=== PATIENT | female | born 1965 | race Two or more races ===

== ENCOUNTER 2020-03-25 17:28 | Emergency (ER) | payer OTHER ==
[~2020-03-25] VITALS: Ht 162.6 cm; Wt 53.5 kg
== END 2020-03-25 20:05 | disposition home or self-care (01) ==
LOC: ER 17:28
DX: R07.89 Other chest pain (principal); F06.4 Anxiety disorder due to known physiological condition

== ENCOUNTER 2020-03-26 18:24 | Emergency (ER) | payer OTHER ==
[~2020-03-26] VITALS: Ht 162.6 cm; Wt 53.5 kg
== END 2020-03-26 20:20 | disposition home or self-care (01) ==
LOC: ER 18:24
DX: R00.2 Palpitations (principal); F41.0 Panic disorder [episodic paroxysmal anxiety]

== ENCOUNTER 2020-03-28 14:23 | Emergency (ER) | payer OTHER ==
[~2020-03-28] VITALS: Ht 162.6 cm; Wt 50.3 kg
[2020-03-28] MEDS ORDERED: CLONAZEPAM1 MG PO (16:45)
[2020-03-28] MEDS ORDERED: VISTARIL50 MG PO (16:45)
[2020-03-28] MEDS ORDERED: VISTARIL25 MG (16:58)
== END 2020-03-28 16:59 | disposition home or self-care (01) ==
LOC: ER 14:23
DX: R07.89 Other chest pain (principal); F06.4 Anxiety disorder due to known physiological condition; R00.2 Palpitations